=== PATIENT | male | born 1965 | race Caucasian/White ===

== ENCOUNTER 2019-12-22 18:28 | Emergency (ER) | payer OTHER ==
[~2019-12-22] VITALS: Ht 170.2 cm; Wt 95.3 kg
[2019-12-22 18:55] VITALS: Ht 170.2 cm; Wt 95.3 kg
[2019-12-22 20:44] VITALS: BP 123/67
== END 2019-12-22 20:44 | disposition home or self-care (01) ==
LOC: ED 18:28
DX: S13.4XXA Sprain of ligaments of cervical spine, initial encounter (principal); S09.8XXA Other specified injuries of head, initial encounter; M50.31 Other cervical disc degeneration, high cervical region; V68.5XXA Driver of heavy transport vehicle injured in noncollision transport accident in traffic accident, initial encounter; Y93.I9 Activity, other involving external motion; Y92.488 Other paved roadways as the place of occurrence of the external cause; Y99.8 Other external cause status
CPT/HCPCS: J8597; Q0162